=== PATIENT | female | born 2000 | race Caucasian/White ===

== ENCOUNTER 2020-09-11 22:42 | Emergency (ER) | payer OTHER, MEDICAID ==
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
[2020-09-16 12:12] LABS: CHLAMYDIA TRACHOMATIS, NAA Negative (Negative); NEISSERIA GONORRHOEAE, NAA Negative (Negative)
[2020-09-16 20:12] LABS: T PALLIDUM ANTIBODIES Non Reactive (Non Reactive)
== END 2020-09-12 02:36 | disposition home or self-care (01) ==
LOC: JP.ED 22:42
DX: T76.21XA Adult sexual abuse, suspected, initial encounter (principal)
CPT/HCPCS: 84703; 86704; 86780; 87210; 87449; 87491; 87591; 99284

== ENCOUNTER 2021-05-30 19:31 | Inpatient (IN) | payer MEDICAID ==
[2021-05-30] MEDS ORDERED: Labetalol 100 MG Tab PO ONE (21:08)
[2021-05-30] MEDS ORDERED: Sodium Chloride 0.9% 10 ML Syringe FLUSH PRN (22:35)
[2021-05-30] MEDS ORDERED: Calcium Gluconate 10% 1 GM/10 ML SDV IVPUSH PRN (22:35)
[2021-05-30] MEDS ORDERED: Magnesium Sulfate/Water 2 GM in Premix Bag 1 BAG IV ONE (22:35)
[2021-05-30] MEDS ORDERED: Lactated Ringers 1,000 ML IV SCH (22:45)
[2021-05-30] MEDS ORDERED: Magnesium Sulfate/Water 40 GM/1,000 ML BAG IV SCH (22:45)
--- NOTE | 2021-05-30 23:00 | PCM.LDHP ---
L&D History of Present Illness - General Date of Service: 05/30/21 Admit Problem/Dx: Patient Status Order with Admit Dx/Problem 05/30/21 22:35 Patient Status [ADT] Routine Admission Diagnosis/Problem Admission Diagnosis/Problem complications Source of Information: Patient History Limitations: Reports: No Limitations - History of Present Illness Introduction:: 05/30/21 Allison is a 20 yo here at 37 1/7 weeks due to double vision with stars and headache today along with elevated BP. BP has been slowly rising over the last couple of weeks but all testing has been normal so far. Today her protein/creatine ratio is elevated along with BP's diagnostic for preeclampsia. Due to her visual disturbances she has severe features. Due to her presentation, delivery is indicated. Allison is a repeat section. She had preeclampsia with abruption at 37 weeks with her first child. She is GBS positive, O positive blood type. - Related Data Allergies/Adverse Reactions: Allergies Allergy/AdvReac Type Severity Reaction Status Date / Time No Known Allergies Allergy Verified 03/11/21 17:54 Home Medications: Home Meds busPIRone [Buspar] 10 mg PO BID 09/11/20 [History] Bacillus Coagulans [Probiotic] 1 each PO DAILY 03/11/21 [History] Pnv No.103/Folic/Om3s/Fish Oil [ Gummies] 1 each PO DAILY 03/11/21 [History] hydrOXYzine HCL [Atarax] 25 mg PO BEDTIME PRN 05/08/21 [History] Ondansetron [Zofran ODT] 4 mg PO Q6H PRN 05/30/21 [History] Past Medical History - Past Health History Medical/Surgical History: Denies Medical/Surgical History HEENT History: Reports: Impaired Vision MANAGER OF TRAINING History: Reports: : 4 Para: 1 LMP (Approximate): - Past Surgical History Musculoskeletal Surgical History: Reports: Other (See Below) Other Musculoskeletal Surgeries/Procedures:: hip surgery Social & Family History - Caffeine Use Caffeine Use: Reports: Coffee, Tea H&P Review of Systems - Review of Systems: Review Of Systems: See Below General: Reports: Malaise HEENT: Reports: Visual Changes Pulmonary: Reports: No Symptoms Cardiovascular: Reports: No Symptoms Gastrointestinal: Reports: No Symptoms Genitourinary: Reports: No Symptoms Musculoskeletal: Reports: No Symptoms Skin: Reports: No Symptoms Psychiatric: Reports: No Symptoms Neurological: Reports: Headache Hematologic/Lymphatic: Reports: No Symptoms Immunologic: Reports: No Symptoms L&D Exam - Exam Exam: See Below - Vital Signs Vital Signs: Last Vital Signs Temp 35.9 C L 05/30/21 19:41 Pulse 67 05/30/21 21:53 Resp 18 05/30/21 20:35 BP 146/103 H 05/30/21 21:53 Pulse Ox 98 05/30/21 20:35 Weight: 72.575 kg - OB Specific Contraction Duration (sec): 50 Contraction Frequency (min): patient reports a few Contraction Intensity: Mild to Moderate Movement: Active Heart Rate (FHR) Variability: Moderate (6-25 bpm) Presentation: Vertex - Exam General: Alert, Oriented HEENT: PERRLA, Conjunctiva Clear, Hearing Intact, Posterior Pharynx Clear, Pupils Equal, Pupils Reactive Neck: Supple, Trachea Midline Lungs: Clear to Auscultation, Normal Respiratory Effort Cardiovascular: Regular Rate, Regular Rhythm. No: Systolic Murmur, Diastolic Murmur GI/Abdominal Exam: Normal Bowel Sounds, Soft, Non-Tender, Pelvis Stable Back Exam: Normal Inspection, Full Range of Motion Extremities: Pedal Edema (1+) Skin: Warm, Dry, Intact Neurological: Cranial Nerves Intact, Reflexes Equal Bilateral DTR: 1+: Patella (L), Patella (R) Psychiatric: Alert, Normal Affect, Normal Mood - Patient Data Lab Results Last 24 hrs: Laboratory Results - last 24 hr 05/30/21 05/30/21 05/30/21 Range/Units 20:38 20:39 21:09 WBC (4.5-11.0) K/uL RBC (3.30-5.50) M/uL Hgb (12.0-15.0) g/dL Hct (36.0-48.0) % MCV (80-98) fL MCH (27-31) pg MCHC (32-36) % Plt Count (150-400) K/uL Sodium 137 L (140-148) mmol/L Potassium 3.4 L (3.6-5.2) mmol/L Chloride 101 (100-108) mmol/L Carbon Dioxide 25 (21-32) mmol/L Anion Gap 14.4 H (5.0-14.0) mmol/L BUN 5 L (7-18) mg/dL Creatinine 0.6 (0.6-1.0) mg/dL Est Cr Clr Drug Dosing 127.00 mL/min Estimated GFR (MDRD) > 60 (>60) Glucose 115 H (74-106) mg/dL Calcium 8.1 L (8.5-10.1) mg/dL Total Bilirubin 0.7 (0.2-1.0) mg/dL AST 18 (15-37) U/L ALT 23 (12-78) U/L Alkaline Phosphatase 181 H (46-116) U/L Lactate Dehydrogenase (82-234) U/L Total Protein 5.9 L (6.4-8.2) g/dL Albumin 2.1 L (3.4-5.0) g/dL Globulin 3.8 H (2.3-3.5) g/dL Albumin/Globulin Ratio 0.6 L (1.2-2.2) Urine Color Yellow (YELLOW) Urine Appearance Slightly cloudy A (CLEAR) Urine pH 7.0 (5.0-8.0) Ur Specific [place] 1.015 (1.008-1.030) Urine Protein Trace H (NEGATIVE) mg/dL Urine Glucose (UA) Negative (NEGATIVE) mg/dL Urine Ketones Negative (NEGATIVE) mg/dL Urine Occult Blood Negative (NEGATIVE) Urine Nitrite Negative (NEGATIVE) Urine Bilirubin Negative (NEGATIVE) Urine Urobilinogen 1.0 (0.2-1.0) EU/dL Ur Leukocyte Esterase Negative (NEGATIVE) Urine RBC 0-5 (0-5) Urine WBC 0-5 (0-5) Ur Epithelial Cells Moderate Amorphous Sediment Few Urine Bacteria Few Urine Mucus Not seen Ur Random Creatinine (20.0-370.0) mg/dL U Random Total Protein (6.0-11.9) mg/dL Protein/Creatinin Ratio (21.0-161.0) mg/g Urine Opiates Screen Negative (NEGATIVE) Ur Oxycodone Screen Negative (NEGATIVE) Urine Methadone Screen Negative (NEGATIVE) Ur Propoxyphene Screen Negative (NEGATIVE) Ur Barbiturates Screen Negative (NEGATIVE) Ur Tricyclics Screen Negative (NEGATIVE) Ur Phencyclidine Scrn Negative (NEGATIVE) Ur Amphetamine Screen Negative (NEGATIVE) U Methamphetamines Scrn Negative (NEGATIVE) Urine MDMA Screen Negative (NEGATIVE) U Benzodiazepines Scrn Negative (NEGATIVE) U Cocaine Metab Screen Negative (NEGATIVE) U Marijuana (THC) Screen Negative (NEGATIVE) 05/30/21 05/30/21 05/30/21 Range/Units 21:09 21:10 22:17 WBC 11.8 H (4.5-11.0) K/uL RBC 4.10 (3.30-5.50) M/uL Hgb 10.7 L (12.0-15.0) g/dL Hct 33.6 L (36.0-48.0) % MCV 82 (80-98) fL MCH 26 L (27-31) pg MCHC 32 (32-36) % Plt Count 217 (150-400) K/uL Sodium (140-148) mmol/L Potassium (3.6-5.2) mmol/L Chloride (100-108) mmol/L Carbon Dioxide (21-32) mmol/L Anion Gap (5.0-14.0) mmol/L BUN (7-18) mg/dL Creatinine (0.6-1.0) mg/dL Est Cr Clr Drug Dosing mL/min Estimated GFR (MDRD) (>60) Glucose (74-106) mg/dL Calcium (8.5-10.1) mg/dL Total Bilirubin (0.2-1.0) mg/dL AST (15-37) U/L ALT (12-78) U/L Alkaline Phosphatase (46-116) U/L Lactate Dehydrogenase 225 (82-234) U/L Total Protein (6.4-8.2) g/dL Albumin (3.4-5.0) g/dL Globulin (2.3-3.5) g/dL Albumin/Globulin Ratio (1.2-2.2) Urine Color (YELLOW) Urine Appearance (CLEAR) Urine pH (5.0-8.0) Ur Specific [place] (1.008-1.030) Urine Protein (NEGATIVE) mg/dL Urine Glucose (UA) (NEGATIVE) mg/dL Urine Ketones (NEGATIVE) mg/dL Urine Occult Blood (NEGATIVE) Urine Nitrite (NEGATIVE) Urine Bilirubin (NEGATIVE) Urine Urobilinogen (0.2-1.0) EU/dL Ur Leukocyte Esterase (NEGATIVE) Urine RBC (0-5) Urine WBC (0-5) Ur Epithelial Cells Amorphous Sediment Urine Bacteria Urine Mucus Ur Random Creatinine 81.4 (20.0-370.0) mg/dL U Random Total Protein 29.9 H (6.0-11.9) mg/dL Protein/Creatinin Ratio 367.3 H (21.0-161.0) mg/g Urine Opiates Screen (NEGATIVE) Ur Oxycodone Screen (NEGATIVE) Urine Methadone Screen (NEGATIVE) Ur Propoxyphene Screen (NEGATIVE) Ur Barbiturates Screen (NEGATIVE) Ur Tricyclics Screen (NEGATIVE) Ur Phencyclidine Scrn (NEGATIVE) Ur Amphetamine Screen (NEGATIVE) U Methamphetamines Scrn (NEGATIVE) Urine MDMA Screen (NEGATIVE) U Benzodiazepines Scrn (NEGATIVE) U Cocaine Metab Screen (NEGATIVE) U Marijuana (THC) Screen (NEGATIVE) Result Diagrams: 05/30/21 21:10 05/30/21 21:09 - Problem List (1) Pre-eclampsia SNOMED Code(s): 537701860 ICD Code: O14.90 - UNSPECIFIED PRE-ECLAMPSIA, UNSPECIFIED TRIMESTER Status: Acute Current Visit: Yes (2) Term SNOMED Code(s): 40505139 ICD Code: Z34.90 - ENCNTR FOR SUPRVSN OF NORMAL , UNSP, UNSP TRIMESTER Status: Acute Current Visit: Yes Problem List Initiated/Reviewed/Updated: Yes Orders Last 24hrs: Active Orders 24 hr Category Date Time Status Patient Status [ADT] Routine ADT 05/30/21 22:35 Ordered Bedrest Bedside Commode [RC] ASDIRECTED Care 05/30/21 22:35 Ordered Heart Rate [RC] Click to Edit Care 05/30/21 22:35 Ordered Monitoring [RC] CONTINUOUS Care 05/30/21 22:35 Ordered Height and Weight [RC] UPON Care 05/30/21 22:35 Ordered Intake and Output Strict [RC] ASDIRECTED Care 05/30/21 22:35 Ordered Notify Provider [RC] PRN Care 05/30/21 22:35 Ordered Notify Provider [RC] PRN Care 05/30/21 22:35 Ordered Notify Provider [RC] PRN Care 05/30/21 22:35 Ordered Notify Provider [RC] PRN Care 05/30/21 22:35 Ordered Peripheral IV Care [RC] . DIRECTED Care 05/30/21 22:35 Ordered Peripheral IV Care [RC] . DIRECTED Care 05/30/21 22:36 Ordered Positioning, Left Lateral [RC] ASDIRECTED Care 05/30/21 22:35 Ordered Vital Signs [RC] PER UNIT ROUTINE Care 05/30/21 22:35 Ordered CORONAVIRUS COVID-19 RAPID [MOLEC] Routine Lab 05/30/21 22:46 Ordered MAGNESIUM [CHEM] Routine Lab 05/30/21 22:33 Ordered MAGNESIUM [CHEM] Timed Lab 05/31/21 05:00 Ordered TYPE AND SCREEN [BBK] Routine Lab 05/30/21 22:25 Ordered Calcium Gluconate Med 05/30/21 22:35 Ordered 1 gm IVPUSH ONETIME PRN Lactated Ringers @ 125 MLS/HR(1,000ml) Med 05/30/21 22:45 Ordered Lactated Ringers [Ringers, Lactated] 1,000 ml IV ASDIRECTED Magnesium Sulfate 40 GM in Water@ 2 GM/HR(1000ml) Med 05/30/21 22:45 Ordered Magnesium Sulfate/Water [Magnesium Sulfate in Water 40 GM/1000 ML] 40 gm in 1,000 ml IV ASDIRECTED Sodium Chloride 0.9% [Saline Flush] Med 05/30/21 22:35 Ordered 10 ml FLUSH ASDIRECTED PRN Deep Tendon Reflexes [WOMSER] Per Unit Routine Oth 05/30/21 22:35 Ordered Peripheral IV Insertion Adult [OM.PC] Routine Oth 05/30/21 22:35 Ordered Seizure Precautions [OM.PC] Routine Oth 05/30/21 22:35 Ordered Resuscitation Status Routine Resus Stat 05/30/21 22:35 Ordered Medication Orders Calcium Gluconate (Calcium Gluconate 10% 1 Gm/10 Ml Sdv) 1 gm IVPUSH ONETIME PRN PRN Reason: Other Lactated Ringer's (Ringers, Lactated) 1,000 mls @ 125 mls/hr IV ASDIRECTED BHUPINDER Magnesium Sulfate (Magnesium Sulfate In Water 40 Gm/1000 Ml) 40 gm in 1,000 mls @ 50 mls/hr IV ASDIRECTED BHUPINDER Sodium Chloride (Sodium Chloride 0.9% 10 Ml Syringe) 10 ml FLUSH ASDIRECTED PRN PRN Reason: Keep Vein Open Assessment/Plan Comment:: 05/30/21 Assessment: 37 1/7 week here with preeclampsia with severe features Pr/Cr ratio 367 BP's elevated Blurred/starry vision Baby active and moving Mild headache Plan: 100 mg Labetalol po given Surgery called for routine repeat section 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
[2021-05-30] MEDS ORDERED: Phenylephrine 1% 10 MG/ML SDV ONE (23:01)
[2021-05-30] MEDS ORDERED: Oxytocin 10 Units/1 ML SDV ONE ×2 (23:01→23:02)
[2021-05-30] MEDS ORDERED: Ondansetron 4 MG/2 ML SDV ONE (23:01)
[2021-05-30] MEDS ORDERED: cefOXitin 1 GM Vial ONE (23:02)
[2021-05-30] MEDS ORDERED: ePHEDrine 50 MG/ML SDV ONE (23:02)
[2021-05-30] MEDS ORDERED: cefOXitin 2 GM Vial ONE (23:02)
[2021-05-30] MEDS ORDERED: Lactated Ringers 1,000 ML ONE (23:02)
[2021-05-30] MEDS ORDERED: Sodium Chloride 0.9% 30 ML ONE (23:02)
[2021-05-30] MEDS ORDERED: Sodium Chloride 0.9% 500 ML ONE (23:46)
[2021-05-31] MEDS ORDERED: fentaNYL 100 MCG/2 ML SDV ONE (00:15)
[2021-05-31] MEDS ORDERED: hydrOXYzine HCl 25 MG Tab PO PRN (01:07)
[2021-05-31] MEDS ORDERED: HYDROmorphone/Normal Saline 15 MG/30 ML PCA IV PRN (01:17)
[2021-05-31] MEDS: Ondansetron 4 MG/2 ML SDV IVPUSH PRN ×2 (01:37→06:21)
[2021-05-31] MEDS: Ibuprofen 600 MG Tab PO SCH ×4 (01:41→20:22)
[2021-05-31] MEDS ORDERED: Naloxone 0.4 MG/ML SDV IV PRN (02:00)
[2021-05-31] MEDS: Metoclopramide 10 MG/2 ML SDV IVPUSH SCH ×4 (03:20→20:24)
[2021-05-31] MEDS: Acetaminophen 500 MG Tab PO SCH ×4 (05:13→21:54)
[2021-05-31] MEDS: cefOXitin 2 GM in Sodium Chloride 0.9% 50 ML IV SCH ×3 (05:36→17:43)
[2021-05-31] MEDS ORDERED: Dextrose 5%-Lactated Ringers 1,000 ML IV SCH (07:15)
--- NOTE | 2021-05-31 09:43 | PN ---
DATE OF SERVICE: 05/31/2021 SUBJECTIVE: Allison had a around midnight. She is sitting up in her bed, nursing her baby. She reports pain is controlled. Vital signs have been stable. She has no questions or concerns. OBJECTIVE: GENERAL: Allison is a pleasant 20-year-old female. VITAL SIGNS: TPR is 95.4, 74, 18, blood pressure 122/80. HEENT: Negative. NECK: Supple. HEART: Regular rate and rhythm. LUNGS: Clear. ABDOMEN: Dressing dry and intact. Abdominal binder is on. EXTREMITIES: Without peripheral edema. ASSESSMENT: 1. Term with history of previous . 2. Preeclampsia. 3. Repeat . Date of procedure: 05/30/2021. Surgeon: Declan Mac MD. PLAN: 1. Full liquid diet. May advance as tolerated. 2. We will evaluate p.r.n. or in a.m. Tracey Choi PA-C /[id number]
[2021-05-31] MEDS ORDERED: Labetalol 100 MG Tab PO PRN (16:46)
[2021-05-31] MEDS ORDERED: Magnesium Sulfate/Water 40 GM/1,000 ML BAG IV SCH (20:00)
[2021-06-01] MEDS: cefOXitin 2 GM in Sodium Chloride 0.9% 50 ML IV SCH ×2 (00:22→06:46)
[2021-06-01] MEDS: Ibuprofen 600 MG Tab PO SCH ×4 (00:22→19:23)
[2021-06-01] MEDS: Metoclopramide 10 MG/2 ML SDV IVPUSH SCH ×4 (03:48→21:31)
[2021-06-01] MEDS: Acetaminophen 500 MG Tab PO SCH ×4 (03:48→21:31)
[2021-06-01] MEDS ORDERED: HYDROmorphone 2 MG Tab PO PRN (07:17)
[2021-06-01] MEDS: Bisacodyl 5 MG Tab PO SCH ×2 (09:28→21:30)
[2021-06-01] MEDS: Docusate Sodium 100 MG Cap PO SCH ×2 (09:28→21:30)
--- NOTE | 2021-06-01 10:08 | PN ---
DATE OF SERVICE: 06/01/2021 SUBJECTIVE: Allison reports her pain is controlled. Vital signs have been stable. She is off the magnesium now. Oral intake 2600. Urine output 4750 via Knight catheter. She has no questions or concerns today. OBJECTIVE: GENERAL: Allison is a pleasant 20-year-old female. She is alert and orientated. VITAL SIGNS: TPR is 97.8, 81, 16, and blood pressure 133/80. HEENT: Negative. NECK: Supple. HEART: Regular rate and rhythm. LUNGS: Clear. ABDOMEN: Negative. Dressings dry and intact. EXTREMITIES: Without peripheral edema. ASSESSMENT: 1. Term with history of previous . 2. Preeclampsia. 3. Repeat . Date of procedure, 05/30/2021. Surgeon, Declan Mac MD. PLAN: 1. Discontinue SOLE STITCHER HAND. 2. Dilaudid 2 to 4 mg q.4 hours p.r.n. pain. 3. Dulcolax 2 tabs 1 b.i.d. p.o. 4. Colace 100 mg p.o. b.i.d. 5. Saline lock IV. 6. Discontinue Knight catheter. 7. Discontinue telemetry and continuous pulse ox. 8. We will evaluate p.r.n. or in a.m. Tracey Choi PA-C /[id number]
[2021-06-01] MEDS: Labetalol 100 MG Tab PO SCH ×2 (12:37→21:31)
--- NOTE | 2021-06-01 17:15 | PCM.SN.2 ---
- Free Text/Narrative Note: 06/01/21 Patient has been feeling okay other than one episode of stars in her vision while up this afternoon. She denies headache and has normal reflexes, one beat clonus left foot. She was started today on labetalol 100 mg BID. She is no longer symptomatic. Encouraging rest and dark room and close monitoring of symptoms.
[2021-06-02] MEDS: Acetaminophen 500 MG Tab PO SCH ×2 (05:25→09:05)
[2021-06-02] MEDS: Ibuprofen 600 MG Tab PO SCH ×2 (05:25→07:17)
[2021-06-02] MEDS: Metoclopramide 10 MG/2 ML SDV IVPUSH SCH (05:25)
[2021-06-02] MEDS ORDERED: Ferrous Sulfate 325 MG Tab PO SCH (08:00)
[2021-06-02] MEDS: Docusate Sodium 100 MG Cap PO SCH (08:06)
[2021-06-02] MEDS: Bisacodyl 5 MG Tab PO SCH (08:06)
[2021-06-02] MEDS: Labetalol 100 MG Tab PO SCH (08:08)
--- NOTE | 2021-06-02 12:17 | DISCH ---
ADMISSION DIAGNOSES: 1. Term . 2. Preeclampsia. 3. Hypertension. DISCHARGE DIAGNOSES: 1. Term with history of previous . Preeclampsia. Repeat . Date of procedure 05/30/2021. Surgeon: Declan Mac MD. 2. Low hemoglobin of 6.7, requiring 2 units of packed red blood cells. HISTORY: Allison Louise is a pleasant 20-year-old female who presented to [facility] on 05/30/2021. She was 37-1/7 weeks who had double vision with star and headache along with elevated blood pressure. After preoperative evaluation and discussion of possible risks and possible complications, she wished to proceed with surgery of C- section. Allison had her on 05/30/2021. She had no operative complications and delivery of a viable female. She remained on the magnesium IV, and per preeclampsia protocol, her Knight catheter was left in to measure urine output. She was also started on a full liquid diet and advanced to regular. On 06/01/2021, vital signs remained stable. 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 She was started on oral pain medication and Dulcolax 2 tabs b.i.d. orally, Colace 100 mg p.o. b.i.d. IV was saline locked. Knight catheter was discontinued. Later in the afternoon, a hemoglobin was checked and it was 6.7. Blood pressure did elevate, so she was started on a labetalol orally, and with a low hemoglobin, given 2 units of packed red blood cells. She tolerated those well. This morning, hemoglobin is 9.1. Her pain is controlled with ibuprofen, Tylenol, and Dilaudid. Oral intake and output adequate, and she is able to be discharged to home without any complications. PHYSICAL EXAMINATION: GENERAL: Dani is a pleasant 20-year-old female. Height is 5 feet 4 inches, weight is 157 pounds. VITAL SIGNS: TPR 97.5, 91, 16, blood pressure 130/81. HEENT: Negative. NECK: Supple. HEART: Regular rate and rhythm. LUNGS: Clear. ABDOMEN: Incision is glued, looks good, healing well. Abdomen is soft and normally tender, nothing abnormal including negative for any hematoma or seroma by palpation. EXTREMITIES: Without peripheral edema. DISPOSITION: Discharged to home. CONDITION: Stable and improving. FOLLOWUP: Appointment with Sofy Stewart CNM, on 06/07/2021, to call for an appointment. Follow up with Tracey Choi PA-C, on 06/10/2021 at 10 a.m. MEDICATIONS: 1. Labetalol 100 mg p.o. b.i.d. #60. 2. Dilaudid 2 mg p.o. q.4 hours p.r.n. pain #12. 3. Colace 100 mg p.o. b.i.d. #60. 4. Ferrous sulfate 325 mg p.o. b.i.d. #60. 5. Motrin 600 mg p.o. q.6 hours p.r.n. pain. DIET: Usual diet as tolerated. Drink 8 to 10 glasses of water a day. ACTIVITY: No lifting greater than 10 pounds for 6 weeks but may lift baby in car seat. Driving: Do not drive for 1 week or within 6 hours of taking Dilaudid for pain medication. DISCHARGE INSTRUCTIONS: Shower/bathing: May shower. No tub bathing or swimming for 6 weeks. Wound incision care: Keep operative site clean and dry. Wear abdominal binder for 6 weeks if tolerated. Notify provider if any fever, increased pain, swelling, redness, drainage, nausea, vomiting, and check hemoglobin prior to Monday's appointment with Sofy Stewart CNM. /[id number]
--- NOTE | 2021-06-07 13:51 | OR ---
DATE OF PROCEDURE: 05/31/2021 SURGEON: Declan Mac MD PREOPERATIVE DIAGNOSIS: Term with history of previous section and emerging preeclampsia. POSTOPERATIVE DIAGNOSIS: Term with history of previous section and emerging preeclampsia. OPERATIVE PROCEDURE: Repeat section (29042). ANESTHESIA: Spinal. MEDIATION COMMISSIONER: Sofy Stewart CNM. INDICATIONS FOR PROCEDURE: This is a 20-year-old presenting for a repeat section. She is near term and is developing some preeclampsia. Plan is to proceed with a section. Potential risks including bleeding, infection, injury to mother and/or baby were all reviewed, and the patient wishes to proceed. DETAILS OF PROCEDURE: The patient was taken to the operating room, and after spinal anesthetic was placed, the patient was placed in a supine position with a roll underneath the right hip and Knight catheter inserted and the abdomen prepped and draped. Previous Pfannenstiel incision was then reused and carried down through the skin, subcutaneous tissue, and through the anterior rectus sheath. Subrectus sheath flaps were then raised superiorly and inferiorly, and the peritoneum was then divided in the midline. The peritoneal reflection of bladder on the uterus was then divided and the bladder reflected downward. A low transverse uterine incision was made and then a viable fetus was delivered through a vertex presentation. Cord was clamped and cut, and routine care given off the field per certified recreational therapist, Sofy Stewart. The patient was given IV and intrauterine oxytocin, and IV cefoxitin. Good uterine contractions were noted and the placenta and membranes were delivered without difficulty. The uterus was then closed with 2 layers of 2-0 Vicryl stitch which was also used to repair the peritoneal reflection of bladder on the uterus. At that point, the midline fascia was approximated with #2 Vicryl stitch, the anterior rectus sheath with #2 Vicryl stitch, and subcutaneous tissue with 3-0 Vicryl stitch, and the skin with 4-0 Vicryl subcuticular stitch. Surgical glue was then placed. The patient was taken to the recovery room in satisfactory condition. Per ACOG guidelines, nurse print shop manager, Sofy Stewart, was indicated to assist in this case. Declan Mac MD /[id number]
== END 2021-06-02 09:15 | disposition home or self-care (01) | DRG 788 ==
LOC: JP.OBCHECK 19:31 → JP.OB 22:35 → OBSVTOIN 23:50 → JP.MS 05-31 00:50
PROVIDERS: ADMIT Advanced Practice Midwife; ATTEND Surgery
PROC: 10D00Z1 Extraction of Products of Conception, Low, Open Approach (ICD-10-PCS; principal; 2021-05-31)
DX: O14.14 Severe pre-eclampsia complicating childbirth (principal); Z37.0 Single live birth; O99.892 Other specified diseases and conditions complicating childbirth; H53.2 Diplopia; Z20.822 Contact with and (suspected) exposure to COVID-19; Z3A.37 37 weeks gestation of pregnancy
CPT/HCPCS: 36415; 36430; 80053; 80305-QW; 81001; 82570; 83615; 83735; 84156; 85025; 85027; 86850; 86870; 86900; 86901; 86920; 86922; 88307; 94762; 99211; A9270-GY; J0694; J1170; J2370; J2405; J2590; J2765; J3010; J3475; J7040; J7120; P9016; U0002

== ENCOUNTER 2021-09-19 13:29 | Emergency (ER) | payer MEDICAID ==
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
--- NOTE | 2021-09-20 09:36 | CR ---
Fingers Thumb Rt F5 CLINICAL HISTORY: Crush injury FINDINGS: There is no acute fracture within the femur. No destructive changes are seen. Impression: Negative
== END 2021-09-19 14:32 | disposition home or self-care (01) ==
LOC: JP.ED 13:29
DX: S67.01XA Crushing injury of right thumb, initial encounter (principal); S60.111A Contusion of right thumb with damage to nail, initial encounter; W23.0XXA Caught, crushed, jammed, or pinched between moving objects, initial encounter
CPT/HCPCS: 11740; 73140-26-F5; 73140-F5; 99283-25

== ENCOUNTER 2021-10-20 06:29 | Emergency (ER) | payer MEDICAID ==
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
== END 2021-10-20 07:08 | disposition home or self-care (01) ==
LOC: JP.ED 06:29
DX: Z77.128 Contact with and (suspected) exposure to other hazards in the physical environment (principal)
CPT/HCPCS: 99284

== ENCOUNTER 2023-10-03 19:00 | Emergency (ER) | payer MEDICAID ==
[2023-10-03] MEDS ORDERED: Bacitracin Oint 1 GM U/D Packet TOP ONE (19:31)
[2023-10-03] MEDS ORDERED: Lidocaine 1% 5 ML VIAL INJECT ONE (19:31)
== END 2023-10-03 20:48 | disposition home or self-care (01) ==
LOC: JP.ED 19:00
DX: S61.012A Laceration without foreign body of left thumb without damage to nail, initial encounter (principal); W26.8XXA Contact with other sharp object(s), not elsewhere classified, initial encounter; Y93.G1 Activity, food preparation and clean up; Y92.000 Kitchen of unspecified non-institutional (private) residence as the place of occurrence of the external cause
CPT/HCPCS: 12001; 99282

== ENCOUNTER 2025-01-20 19:22 | Emergency (ER) | payer MEDICAID ==
[2025-01-20 20:35] LABS: CORONAVIRUS COVID-19 NAA NEGATIVE (NEGATIVE); INFLUENZA A NAA NEGATIVE (NEGATIVE); INFLUENZA B NAA NEGATIVE (NEGATIVE); RESPIRATORY SYNCYTIAL VIR NAA NEGATIVE (NEGATIVE)
== END 2025-01-20 20:55 | disposition home or self-care (01) ==
LOC: JP.ED 19:22
DX: K52.9 Noninfective gastroenteritis and colitis, unspecified (principal); Z79.899 Other long term (current) drug therapy
CPT/HCPCS: 0241U; 99282; 99284